=== PATIENT | female | born 1965 | race Caucasian/White ===

== ENCOUNTER 2024-04-12 13:55 | Emergency (ER) | payer OTHER, SELFPAY ==
[2024-04-12] VITALS (7 sets, daily range): BP systolic 116–143; BP diastolic 78–89; PULSE 61–79
--- NOTE | 2024-04-12 15:54 | ED.GENMED ---
History of Present Illness
General
Chief Complaint: Fainting Sensation
Source: patient
Exam Limitations: none
Time Seen by Provider: 04/12/24 15:04
Nursing documentation reviewed up to this point in time: agreed with
History of Present Illness
History of Present Illness:
Patient to ED with complaint of near syncope x 3 weeks, 1 sycopal event today. States near syncope comes on suddenly and resolves with sitting. Lasts for 30-40 seconds. Today she did not have a place to sit and syncopized. reports frequent
headaches over the past 3 weeks. No changes in vision. Denies any cp/pressure, SOB. 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 Reports drinking watera and water frequently throughout the day. Brought self to ED for eval.
Past History
Past History
ED Past Medical History: Cancer (breast), Psychiatric (anxiety/depression) and Other (cochlear implants)
ED Past Surgical History: Appendectomy and Other (bilateral mastectomy s/p breast CA 12/2019, umbilical hernia child)
Social History
Tobacco: Non-smoker
Alcohol: None
Drug: None
Living: with family
Employment: Employed
Review of Systems
Review of Systems
Allergies reviewed?: Yes
All Other Systems: ROS reviewed and negative except as documented in HPI and ROS
Constitutional: Reports no symptoms
EENT: Reports no symptoms
Respiratory: Reports no symptoms
Cardiac: Reports syncope
ABD/GI: Reports no symptoms
: Reports no symptoms
Musculoskeletal: Reports no symptoms
Skin: Reports no symptoms
Neurological: Reports headache
Psychiatric: Reports no symptoms
Phy Exam
General Physical Exam
General Presentation: well appearing and no apparent distress
General age: appears stated age
General Skin: warm and dry
General Habitus: normal
General Mental: alert
Cardiovascular Exam
Cardiovascular Exam: regular rate/rhythm and no edema
Pulmonary Exam
Pulmonary Exam: lungs clear and no respiratory distress
Gastrointestinal Exam
Gastrointestinal Exam: non tender, soft and no organomegaly
Musculoskeletal Exam
Musculoskeletal Exam: full ROM and neuro vasc intact
Skin Exam
Skin Exam: normal color, warm/dry and no rash
Psychiatric Exam
Psychiatric Exam: normal mood/affect
Course
Orders/Labs/Results
Orders:
Orders
04/12/24 14:07
Electrocardiogram (*1) Urgent
Reason for Study: Syncope
EKG- Treatment ONCE
04/12/24 15:50
CT Head W/o Iv Contrast Urgent
Comment:
Reason For Exam: syncope, headache
Cardiac Monitoring- Treatment ONCE
Orthostatic VS- Treatment ONCE
04/12/24 16:05
Complete Blood Count/With Diff Urgent
Comprehensive Metabolic Panel Urgent
Troponin I Urgent
04/12/24 16:05
04/12/24 16:05
Vital Signs
Initial and Last Documented VS:
Initial Vital Signs
Temp Pulse Resp BP Pulse Ox
98.0 F 82 16 129/89 89
04/12/24 14:06 04/12/24 14:06 04/12/24 14:06 04/12/24 14:06 04/12/24 14:06
Last Documented Vital Signs
Temp Pulse Resp BP Pulse Ox
98.0 F 62 16 118/79 99
04/12/24 14:06 04/12/24 17:51 04/12/24 17:51 04/12/24 17:51 04/12/24 17:51
*Radiology
Radiology exam reviewed: radiology read reviewed
*Pulse Oximetry
Patient hypoxic: no
*EKG
Interpretation: normal
Rate: normal
Rhythm: sinus
*Critical Care Note
Total Time (30-74mins, 75-104mins- exclusive of procedures): Not Applicable
Update Note
Update Note:
No concerning findings on exam today. Labs, CT reviewed wtih patient. WIll discharge home with close follow up with PCP. COnsider holter monitor. She will discuss further with her PCP
ED Attending Note
-
Portions of this chart may have been created with voice recognition software.� Occasional wrong word or��sound alike� substitutions may have occurred due to the inherent limitations of voice recognition software.
Discharge Plan
Departure
Patient Disposition: Home (Routine Discharge)
Date of Disposition: 04/12/24
Time of Disposition: 17:14
Patient with high blood pressure during this ER visit?: No
Condition: Good
Covid-19: Not Applicable
Discharge Problem:
Near syncope
Instructions: Near Fainting (DC)
Prescriptions:
No Action
multivitamin [One Daily] 1 EACH tablet
1 ea PO HS
venlafaxine 75 MG capsule,extended release 24hr
75 mg PO DAILY@1800
[id number] [Excedrin Migraine] 1 TABLET tablet
0.5 tab PO DAILY PRN (Reason: migraine)
acetaminophen 325 MG tablet
650 mg PO Q4HPRN PRN (Reason: pain>2/10) 0RF
doxycycline hyclate 50 MG capsule
50 mg PO Q12 Qty: 30 0RF
venlafaxine 37.5 MG tablet
75 mg PO BID 0RF
hydrocodone-acetaminophen [[place]] 1 EACH tablet
1 ea PO Q4HPRN PRN (Reason: pain>4/10) Qty: 30 0RF
Rx Instructions:
take daily stool softener
doxycycline hyclate 100 MG capsule
100 mg PO Q12 Qty: 14 0RF
Referrals:
Jaquan Key, DO [Family Provider] - Tomorrow
Activity Restrictions/Additional Instructions:
Return to the emergency department immediately for any changes in/worsening of your symptoms.
Interventions
Interventions:
*Risk Screen - Suicide Last Done: 04/12/24 15:22
*General Assessment Last Done: 04/12/24 15:22
*Neglect/Abuse Screening Last Done: 04/12/24 15:22
ED- Fall Risk Assessment Last Done: 04/12/24 17:51
*ED COVID-19 Vaccine History Last Done: 04/12/24 15:22
*Nursing Disposition Last Done: 04/12/24 17:51
ED- Cardiac Assessment Last Done: 04/12/24 15:22
ED- Neurological Assessment Last Done: 04/12/24 15:22
Discharge Date and Time
Discharge Date/Time: 04/12/24 17:52
Print Language: INDONESIAN
[2024-04-12 16:12] LABS: % Basophils 0.8 % (0-2); % Eosinophils 1.1 % (0-6); % Immature Granulocytes 0.3 % (0-0.5); % Lymphocytes 27.7 % (20.5-51.1); % Monocytes 6.9 % (1.7-9.3); % Neutrophils 63.2 % (42.2-75.2); Absolute Basophils 0.1 10^3/uL (0-0.2); Absolute Eosinophils 0.1 10^3/uL (0-0.7); Absolute Monocytes 0.5 10^3/uL (0.1-0.6); Absolute Neutrophils 4.6 10^3/uL (1.4-6.5); Hematocrit 43.8 % (37.0-47.0); Hemoglobin 14.9 g/dL (12.0-16.0); Mean Corpuscular Hgb 29.7 pg (27.0-31.0); Mean Corpuscular Volume 87.4 fL (81.0-99.0); Mean Platelet Volume 9.8 fL (7.4-10.4); Nucleated Red Blood Cells % 0 %; Platelet Count 223 10^3/uL (130-400); Red Blood Cell Count 5.01 10^6/uL (4.20-5.40); Red Cell Dist. Width 12.9 % (11.5-14.5); White Blood Cell Count 7.2 10^3/uL (4.8-10.8)
[2024-04-12 16:26] LABS: ALT (SGPT) 18 U/L (0-35); AST (SGOT) 24 U/L (14-36); Albumin 4.7 g/dl (3.5-5.0); Alkaline Phosphatase 59 U/L (38-126); Blood Urea Nitrogen 17 mg/dl (7-17); Calcium 9.7 mg/dl (8.4-10.2); Carbon Dioxide 30 mmol/L (22-30); Chloride 103 mmol/L (98-107); Glucose 86 mg/dl (70-99); Potassium 3.9 mmol/L (3.5-5.1); Sodium 141 mmol/L (135-145); Total Bilirubin 0.5 mg/dl (0.2-1.3); Total Protein 7.4 g/dl (6.3-8.2); eGFR > 60.00
[2024-04-12 16:36] LABS: Troponin I < 0.012 ng/ml
== END 2024-04-12 17:52 | disposition home or self-care (01) ==
LOC: EMR 13:55
PROVIDERS: Nurse Practitioner; EMERGENCY PHYSICIAN Emergency Medicine; FAMILY PHYSICIAN Family Medicine
DX: R55 Syncope and collapse (principal)
CPT/HCPCS: 99285; 70450; 80053; 84484; 85025; 93005

== ENCOUNTER → 2024-05-11 12:45 | Outpatient (REF) | payer OTHER, SELFPAY | LOC: HWRAD 12:45 | PROVIDERS: ATTENDING PHYSICIAN Family Medicine | DX: R22.42 Localized swelling, mass and lump, left lower limb (principal) | CPT/HCPCS: 76882 ==

== ENCOUNTER → 2024-06-12 14:28 | Outpatient (REF) | payer OTHER, SELFPAY | LOC: RAD 14:28 | PROVIDERS: ATTENDING PHYSICIAN Family Medicine | DX: R55 Syncope and collapse (principal); R22.42 Localized swelling, mass and lump, left lower limb | CPT/HCPCS: 93880 ==

== ENCOUNTER → 2024-06-14 10:45 | Outpatient (REF) | payer OTHER, SELFPAY | LOC: HWEVLT 10:45 | PROVIDERS: ATTENDING PHYSICIAN Radiology Vascular & Interventional Radiology | DX: I83.893 Varicose veins of bilateral lower extremities with other complications (principal) | CPT/HCPCS: 93970 ==

== ENCOUNTER → 2024-08-16 09:40 | Outpatient (REF) | payer OTHER, SELFPAY | LOC: HWEVLT 09:40 | PROVIDERS: ATTENDING PHYSICIAN Radiology Vascular & Interventional Radiology | DX: I83.891 Varicose veins of right lower extremity with other complications (principal) | CPT/HCPCS: 36478; C1769 ==

== ENCOUNTER → 2024-08-28 10:26 | Outpatient (REF) | payer OTHER, SELFPAY | LOC: HWEVLT 10:26 | PROVIDERS: ATTENDING PHYSICIAN Radiology Vascular & Interventional Radiology | DX: I83.891 Varicose veins of right lower extremity with other complications (principal) | CPT/HCPCS: 93971 ==

== ENCOUNTER → 2024-09-20 09:30 | Outpatient (REF) | payer OTHER, SELFPAY | LOC: HWEVLT 09:30 | PROVIDERS: ATTENDING PHYSICIAN Radiology Vascular & Interventional Radiology | DX: I83.892 Varicose veins of left lower extremity with other complications (principal) | CPT/HCPCS: 36478 ==

== ENCOUNTER → 2024-10-16 11:28 | Outpatient (REF) | payer OTHER, SELFPAY | LOC: HWEVLT 11:28 | PROVIDERS: ATTENDING PHYSICIAN Radiology Vascular & Interventional Radiology | DX: I83.892 Varicose veins of left lower extremity with other complications (principal) | CPT/HCPCS: 93971 ==

== ENCOUNTER → 2025-07-03 12:37 | Outpatient (REF) | payer OTHER, SELFPAY | LOC: HWRAD 12:37 | PROVIDERS: ATTENDING PHYSICIAN Obstetrics & Gynecology; FAMILY PHYSICIAN Family Medicine; PRIMARYCARE PHYSICIAN Family Medicine | DX: N95.0 Postmenopausal bleeding (principal) | CPT/HCPCS: 76830; 76856 ==